=== PATIENT | male | born 1975 | race Caucasian/White ===

== ENCOUNTER 2021-04-09 17:21 | Emergency (ER) | payer OTHER ==
[2021-04-09 17:42] VITALS: TEMP 97.8; BMI 23.3
[2021-04-09] MEDS ORDERED: SODIUM CHLORIDE 1,000 ML IV ONE (18:00)
[2021-04-09 18:52] LABS: INR 1.06 (0.83-1.09); PROTHROMBIN TIME (PATIENT) 12.2 SEC (9.7-13.0)
[2021-04-09 18:55] LABS: ACTIVATED PTT 24.4 SECONDS (25.2-36.5)
[2021-04-09 19:01] LABS: ALBUMIN 4.7 g/dl (3.4-5.0); BILIRUBIN,TOTAL 0.3 mg/dl (0.2-1); CALCIUM 9.5 mg/dl (8.5-10); CREATININE 1.1 mg/dl (0.55-1.3); TOT PROT 7.4 g/dl (6.4-8.2)
[2021-04-09 19:36] LABS: VENOUS BASE EXCESS -0.5 mmol/L (-2-2); VENOUS O2 SATURATION 68.4 % (70-80); VENOUS PCO2 52.5 mmHg (38-52); VENOUS PH 7.323 (7.310-7.410)
[2021-04-09 19:41] LABS: BASO % 0.6 % (0-2.0); EOS % 0.4 % (0-4.5); HEMATOCRIT 45.8 % (35.4-49); HEMOGLOBIN 15.8 GM/dL (11.7-16.9); MCHC 34.6 g/dl (32.0-35.9); MEAN CELL VOLUME 92.7 fl (80-96); MEAN PLT VOLUME 6.9 fl (7.5-11.1); MONO % 5.7 % (3.8-10.2); NEUT % 84.3 % (42.8-82.8); PLATELET COUNT 293 10^3/uL (134-434); RBC 4.94 M/mm3 (4.00-5.60); RDW 12.8 % (11.9-15.9)
[2021-04-09 20:07] VITALS: BP 130/79; PULSE 90
[2021-04-09 20:56] LABS: URINE BARBITURATES NEGATIVE (NEGATIVE)
[2021-04-09 20:57] LABS: PHENCYCLIDINE,URINE NEGATIVE (NEGATIVE); URINE BENZODIAZEPINES NEGATIVE (NEGATIVE)
[2021-04-09 20:58] LABS: COCAINE, UR NEGATIVE (NEGATIVE); METHADONE, UR NEGATIVE (NEGATIVE); OPIATES, URI NEGATIVE (NEGATIVE); URINE AMPHETAMINES NEGATIVE (NEGATIVE)
== END 2021-04-09 21:15 | disposition home or self-care (01) ==
LOC: FER 17:21
PROC: 3E0337Z Introduction of Electrolytic and Water Balance Substance into Peripheral Vein, Percutaneous Approach (ICD-10-PCS; principal; 2021-04-09)
DX: R41.82 Altered mental status, unspecified (principal)
CPT/HCPCS: 36415; 70450-TC; 71045-TC-FY; 72125-TC; 80053; 80307; 81003; 82140; 82550; 82803; 82962; 84484; 85025; 85610; 85730; 86850; 86900; 86901; 87086; 93005; 99285-25